=== PATIENT | male | born 1950 | race African-American/Black ===

== ENCOUNTER 2022-08-27 04:30 | Inpatient (IN) | payer OTHER ==
[~2022-08-27] VITALS: Ht 175.3 cm; Wt 68.0 kg
--- NOTE | 2022-08-27 04:35 | NUR ---
[facility] TO ER BED 11.
[2022-08-27 04:36] VITALS: BP 224/115
--- NOTE | 2022-08-27 04:42 | NUR ---
Idalmis martinez in ED - 08/27/22 at [address] PISANO AT BEDSIDE EVALUATING PT.
--- NOTE | 2022-08-27 04:49 | NUR ---
X-RAY AT BEDSIDE.
[2022-08-27] MEDS ORDERED: FUROSEMIDE 40 MG/4 ML VIAL IVP ONE (04:55)
--- NOTE | 2022-08-27 05:32 | NUR ---
TONYA AND PHYLLIS COLLECTED, GIVEN TO EUNICE FROM LAB.
[2022-08-27 05:49] LABS: BASOPHILS # (AUTO) 0.1 K/uL (0.00-0.22); BASOPHILS % (AUTO) 1.5 % (0.0-2.0); EOSINOPHILS # (AUTO) 0.1 K/uL (0-0.4); EOSINOPHILS % (AUTO) 1.7 % (0.0-4.0); HEMATOCRIT 33.7 % (36-52); HEMOGLOBIN 10.5 g/dL (12.0-18.0); LYMPHOCYTES # (AUTO) 1.6 K/uL (2.0-11.5); LYMPHOCYTES % (AUTO) 20.9 % (20.5-51.1); MEAN CORPUSCULAR HEMOGLOBIN 26 pg (27-31); MEAN CORPUSCULAR HGB CONC 31 g/dL (33-37); MEAN CORPUSCULAR VOLUME 81.8 fL (80-94); MONOCYTES # (AUTO) 0.5 K/uL (0.8-1.0); MONOCYTES % (AUTO) 6.6 % (1.7-9.3); NEUTROPHILS # (AUTO) 5.3 K/uL (1.8-7.7); NEUTROPHILS % (AUTO) 69.3 % (42.2-75.2); PLATELET COUNT (AUTO) 352 K/uL (140-450); RED BLOOD CELL COUNT(AUTO) 4.12 MIL/uL (4.20-6.10); RED CELL DISTRIBUTION WIDTH 16.6 % (11.6-13.7); WHITE BLOOD COUNT (AUTO) 7.6 K/uL (4.8-10.8)
[2022-08-27] MEDS ORDERED: cefTRIAXone 1,000 MG VIAL ONE (05:50)
--- NOTE | 2022-08-27 05:59 | NUR ---
Patient lying in bed, A/Ox4, chest rise and fall symmetrical, no s/s of distress
[2022-08-27 06:04] LABS: ALBUMIN 3.5 g/dL (3.4-5.0); ANION GAP 11.7 (8-16); ASPARTATE AMINOTRANSFERASE 69 U/L (15-37); CARBON DIOXIDE 30.4 mmol/L (21-32); CHLORIDE 102 mmol/L (98-107); CREATININE 1.2 mg/dL (0.6-1.3); GLUCOSE 102 mg/dL (74-106); POTASSIUM 4.1 mmol/L (3.5-5.1); SODIUM SERUM 140 mmol/L (136-145); TOTAL BILIRUBIN 0.7 mg/dL (0.0-1.0); UREA NITROGEN, BLOOD 21 mg/dL (7-18)
[2022-08-27 06:25] LABS: APPEARANCE,URINE CLEAR (CLEAR); BILIRUBIN,URINE NEGATIVE (NEGATIVE); BLOOD, URINE 3+ (NEGATIVE); COLOR,URINE AMBER (YELLOW); LEUKOCYTE ESTERASE ,URINE TRACE (NEGATIVE); NITRITE, URINE NEGATIVE (NEGATIVE); UGLUCOSE NEGATIVE (NEGATIVE)
[2022-08-27] MEDS ORDERED: ALBUTEROL 0.083% 2.5 MG/3 ML NEBU INH PRN (06:35)
[2022-08-27 06:38] LABS: RBC,URINE 11-20 (MOD) /HPF (0-5); WBC,URINE 0-5 /HPF (0-5)
[2022-08-27 06:39] LABS: OTHER CASTS, URINE None Seen /LPF (None Seen)
[2022-08-27] MEDS ORDERED: hydrALAZINE 20 MG/ML VIAL IVP PRN (06:40)
[2022-08-27] MEDS ORDERED: ACETAMINOPHEN 325 MG TAB PO PRN (06:40)
[2022-08-27] MEDS ORDERED: ONDANSETRON 4 MG/2 ML VIAL IVP PRN (06:40)
[2022-08-27] MEDS ORDERED: LORazepam 2 MG/ML VIAL IVP PRN (06:40)
[2022-08-27] MEDS ORDERED: ZOLPIDEM 10 MG TAB PO PRN (06:40)
[2022-08-27] MEDS ORDERED: DOCUSATE SODIUM 100 MG GELCAP PO PRN (06:40)
[2022-08-27] MEDS ORDERED: POTASSIUM CHLORIDE 10 MEQ TABER PO PRN (06:40)
[2022-08-27] MEDS ORDERED: MORPHINE SULFATE 2 MG/ML SYR IVP PRN (06:40)
[2022-08-27] MEDS ORDERED: MAG SULF 2000 MG/WATER PREMIX 50 ML IV PRN (06:40)
--- NOTE | 2022-08-27 06:43 | NUR ---
Note michelle in EDM - 08/27/22 at [id number] Kennedy informed, via telephone, of patient's vital signs. Cardiac medication order requested from Dr. Kennedy due to high BP. Dr. Kennedy stated she "will put it in."
--- NOTE | 2022-08-27 06:45 | NUR ---
Patient lying in bed, A/Ox4, chest rise and fall symmetrical, no s/s of distress, on bipap.
--- NOTE | 2022-08-27 06:45 | NUR ---
Dr. Kennedy informed, via telephone, of patient's vital signs. Medication order requested from Dr. Kennedy due to high BP. Dr. Kennedy stated she "will put it in."
--- NOTE | 2022-08-27 07:34 | NUR ---
Received report from RASHMI Kwok. Assumed care at this time.
--- NOTE | 2022-08-27 07:40 | NUR ---
Change of shift report given to AM shift nurse Sedrick CARABALLO. AM shift nurse Sedrick RN verbalized understanding of report, no further questions.
[2022-08-27] MEDS ORDERED: METOPROLOL SUCCINATE 50 MG TABER PO SCH (09:00)
--- NOTE | 2022-08-27 09:08 | NUR ---
PATIENT HAS BEEN SCREENED AND CATEGORIZED MODERATE NUTRITION RISK. PATIENT WILL BE SEEN WITHIN 3-5 DAYS OF ADMISSION. REVIEWED BY KARIS THAO RD
[2022-08-27] MEDS ORDERED: CRUSHER, PILL MC ONE (09:36)
[2022-08-27] MEDS: FUROSEMIDE 40 MG/4 ML VIAL IVP SCH (09:41)
[2022-08-27] MEDS: ECOTRIN 81 MG TABEC PO SCH (09:41)
[2022-08-27] MEDS: hydrALAZINE 10 MG TAB PO SCH ×2 (09:41→13:46)
--- NOTE | 2022-08-27 12:54 | NUR ---
Patient will be admitted to care of Dr. Hernández. Admited to TELE. Will go to room 126A. Belongings list completed. Report to RASHMI Mendoza.
[2022-08-27 13:00] VITALS: BP 168/86
--- NOTE | 2022-08-27 13:00 | NUR ---
RECEIVED REPORT FROM ER NURSE AROLDO FOR CONTINUITY OF CARE. PT STABLE ON TRANSPORT. HE IS A&OX4, HAS DRY SKIN IN BLE THAT HAS HEALED WOUNDS THAT ARE COVERED, ON 8L NC ON TRANSPORT BUT PLACED ON BIPAP WHEN ARRIVED ON UNIT, AND A VAUGHN IN PLACE. PT HAS AN IV IN HIS R HAND 20G AND IN HIS LAC 20G, BOTH ARE INTACT, FLUSH AND SALINE LOCKED. ALL SAFETY MEASURES IN PLACE WITH THE CALL LIGHT IN REACH AND BED IN LOW POSITION. WILL CONTINUE TO MONITOR.
[2022-08-27 16:00] VITALS: BP 140/67
[2022-08-27 19:15] LABS: BARBITURATE, URINE NEGATIVE ng/ml (NEG <=200); BENZODIAZEPINE, URINE NEGATIVE ng/mL (NEG <=200); CANNABINOID, URINE NEGATIVE ng/mL (NEG <=50); COCAINE, URINE NEGATIVE ng/mL (NEG <=300); OPIATE, URINE NEGATIVE ng/mL (NEG <=2000); PHENCYCLIDINE SCREEN,URINE NEGATIVE ng/mL (NEG <=25)
--- NOTE | 2022-08-27 19:25 | NUR ---
ENDORSED PT TO BUS STARTER NURSE FOR CONTINUITY OF CARE. PT STABLE.
--- NOTE | 2022-08-27 19:30 | NUR ---
HAND-OFF REPORT RECEIVED FROM JANE FOR CONTINUITY OF CARE. ENDORSED ULTRASOUND THIS EVENING CONFIRMED BILATERAL PLEURAL EFFUSION. BIPAP ON. PT ON 4LITER O2/NC WHEN BIPAP OFF (EATING). PRIOR CXR AND ECHO REVEALED PLEURAL EFFUSION. PT RECEIVED A/0X4 EATING. 02 4L/NC. WILL INFORM MD CONCERNING US RESULTS.
--- NOTE | 2022-08-27 19:52 | NUR ---
DR MARTÍNEZ NOTIFIED VIA TEXT CONCERNING US RESULTS.NEW ORDERS OBTAINED FOR ULTRASOUND GUIDED THORACENTESIS.
[2022-08-27 20:00] VITALS: BP 137/76
[2022-08-27] MEDS: carvediloL 6.25 MG TAB PO SCH (21:51)
--- NOTE | 2022-08-27 22:00 | NUR ---
PT REFUSED TO SIGN CONSENT FOR ULTRASOUND GUIDED THORACENTESIS. "I GOT 3TEST DONE AT OTHER HOSPITALS AND THEY NEVER SAID I NEEDED TO GET FLUID TAKEN FROM ANYWHERE SO I COULD BREATHE BETTER. WHY CAN'T THEY USE DRUGS ONLY?" CONSENT UNSIGNED.
[2022-08-28] VITALS: BP 129/66
[2022-08-28 04:00] VITALS: BP 154/86
--- NOTE | 2022-08-28 04:25 | NUR ---
NOTIFIED TANYA SMITH PT REFUSED TO SIGN CONSENT STATING PREFERENCE TO TREAT WITH DRUGS OPPOSED TO THORACENTESIS.
--- NOTE | 2022-08-28 05:18 | NUR ---
FOUND PATIENT ON 4L NASAL CANNULA. PATIENT WAS SATING 96%. SPOKE WITH PTS NURSE AND SHE SAID THAT PT REFUSED TO WEAR THE BIPAP AND ASKED FOR A BREAK. PT WAS EXHIBITING NO APPARENT RESPIRATORY DISTRESS.
[2022-08-28 05:32] LABS: BASOPHILS # (AUTO) 0.1 K/uL (0.00-0.22); EOSINOPHILS # (AUTO) 0.1 K/uL (0-0.4); EOSINOPHILS % (AUTO) 2.1 % (0.0-4.0); HEMATOCRIT 28.6 % (36-52); LYMPHOCYTES # (AUTO) 1.5 K/uL (2.0-11.5); LYMPHOCYTES % (AUTO) 23.9 % (20.5-51.1); MEAN CORPUSCULAR HEMOGLOBIN 25 pg (27-31); MEAN CORPUSCULAR HGB CONC 31 g/dL (33-37); MEAN CORPUSCULAR VOLUME 80.6 fL (80-94); MONOCYTES # (AUTO) 0.6 K/uL (0.8-1.0); MONOCYTES % (AUTO) 10.1 % (1.7-9.3); NEUTROPHILS % (AUTO) 62.9 % (42.2-75.2); PLATELET COUNT (AUTO) 284 K/uL (140-450); RED BLOOD CELL COUNT(AUTO) 3.55 MIL/uL (4.20-6.10); RED CELL DISTRIBUTION WIDTH 16.4 % (11.6-13.7); WHITE BLOOD COUNT (AUTO) 6.4 K/uL (4.8-10.8)
[2022-08-28 06:20] LABS: ANION GAP 8.8 (8-16); CARBON DIOXIDE 32.3 mmol/L (21-32); CHLORIDE 104 mmol/L (98-107); CREATININE 1.3 mg/dL (0.6-1.3); GLUCOSE 92 mg/dL (74-106); POTASSIUM 4.1 mmol/L (3.5-5.1); SODIUM SERUM 141 mmol/L (136-145); UREA NITROGEN, BLOOD 23 mg/dL (7-18)
--- NOTE | 2022-08-28 07:30 | NUR ---
RECEIVED REPORT FROM FORENSIC TOXICOLOGIST NURSE. PT STABLE, ON 4L NC WITH NO S/S OF ACUTE RESP DISTRESS. CHEST RISING AND FALLING EVEN AND UNLABORED. PT DENIES SOB. FORENSIC TOXICOLOGIST REPORTS PT REFUSING TO WEAR BIPAP MACHINE. ALL SAFETY MEASURES IN PLACE. WILL CONTINUE TO MONITOR UNDER THE CARE OF RASHMI BLANCO.
--- NOTE | 2022-08-28 07:30 | NUR ---
ENDORSED TO A.M. NURSE MCCABE AND FRANCIS RNs PER CONTINUITY OF CARE: PT REFUSAL TO SIGN CONSENT AND REFUSAL TO KEEP BIPAP MACHINE ON. RT AWARE PT ON 4L/NC PRESENTLY AND MAINTAINING SATS.
--- NOTE | 2022-08-28 07:30 | NUR ---
ENDORSED PATIENT FROM PLANTING SUPERVISOR NURSE.PATIENT LYING IN BED.VERBALLY ACTIVE.VITALS ARE STABLE.POC DISCUSSED WITH PLANTING SUPERVISOR NURSE.ALL SAFETY MEASURES IN PLACE.
[2022-08-28 08:00] VITALS: BP 166/88
--- NOTE | 2022-08-28 09:00 | NUR ---
ALL SCHEDULED MEDICATION ADMINISTERED PER MD ORDER BY RASHMI BLANCO. PT TOLERATED ADMINISTRATIONS. ALL QUESTIONS ANSWERED, REPORTS ALL NEEDS ARE MET AT THIS TIME. ON 4L NC, RT SURAJ ASSESSING. NO ACUTE S/S OF DISTRESS. ALL SAFETY MEASURES IN PLACE, CALL LIGHT WITHIN REACH. WILL CONTINUE TO MONITOR.
[2022-08-28] MEDS: carvediloL 6.25 MG TAB PO SCH ×2 (09:05→21:00)
[2022-08-28] MEDS: ECOTRIN 81 MG TABEC PO SCH (09:05)
[2022-08-28] MEDS: FUROSEMIDE 40 MG/4 ML VIAL IVP SCH (09:05)
[2022-08-28] MEDS: lisinopriL 5 MG TAB PO SCH (09:06)
--- NOTE | 2022-08-28 10:00 | NUR ---
DR MTZ MADE AWARE OF PT REFUSING THORACENTISIS, UNABLE TO OBTAIN CONSENT
--- NOTE | 2022-08-28 10:30 | NUR ---
PT REPORTS BEING HUNGRY, FOOD PROVIDED WITH WATER. ALL SAFETY MEASURES IN PLACE, CALL LIGHT WITHIN REACH. WILL CONTINUE TO MONITOR.
--- NOTE | 2022-08-28 11:43 | NUR ---
RADIOLOGIST CALLED STATING PT NEEDS A PT, PTT INR FOR POSSIBLE THORACENTESIS, INCASE PT CHANGES THEIR MIND AND ACCEPTS THE PROCEDURE.
[2022-08-28 12:00] VITALS: BP 152/57
[2022-08-28 16:00] VITALS: BP 138/72
--- NOTE | 2022-08-28 16:31 | NUR ---
PT STABLE IN BED WITH NO S/S OF ACUTE DISTRESS, ALL NEEDS REPORTED BY PT MET. ALL SAFETY MEASURES IN PLACE, CALL LIGHT WITHIN REACH. WILL CONTINUE TO MONITOR.
--- NOTE | 2022-08-28 18:44 | NUR ---
PT BEDDING HAS BEEN SWITCHED. PT ASSISTED TO THE RESTROOM FOR BM. PT REPORTS MILD NOSE BLEED FROM NC, MOISTURIZER AND EDUCATION PROVIDED. PT CLEANED UP. ALL NEEDS HAVE BEEN MET THROUGH OUT THE SHIFT. ALL SAFETY MEASURES IN PLACE, CALL LIGHT WITHIN REACH. WILL CONTINUE TO MONITOR.
--- NOTE | 2022-08-28 19:30 | NUR ---
RECEIVED REPORT FROM DAY SHIFT NURSE. PT STABLE. CONT ON 4L/NC. 02 SAT 96%. ALL SAFETY MEASURES IN PLACE. WILL CONTINUE TO MONITOR.
[2022-08-28 20:00] VITALS: BP 117/65
--- NOTE | 2022-08-28 22:00 | NUR ---
HS CARE AND MEDS SCHEDULED. HS SNACK. NO SOB. NO NOSE BLEEDS. MONITOR AND ASST. NEEDED
[2022-08-29] VITALS: BP 107/53
[2022-08-29 04:00] VITALS: BP 128/70
[2022-08-29 07:26] LABS: BASOPHILS % (AUTO) 0.7 % (0.0-2.0); EOSINOPHILS # (AUTO) 0.2 K/uL (0-0.4); EOSINOPHILS % (AUTO) 2.7 % (0.0-4.0); HEMATOCRIT 26.5 % (36-52); HEMOGLOBIN 8.6 g/dL (12.0-18.0); LYMPHOCYTES # (AUTO) 1.6 K/uL (2.0-11.5); LYMPHOCYTES % (AUTO) 26.4 % (20.5-51.1); MEAN CORPUSCULAR HEMOGLOBIN 26 pg (27-31); MEAN CORPUSCULAR HGB CONC 32 g/dL (33-37); MEAN CORPUSCULAR VOLUME 79.2 fL (80-94); MONOCYTES # (AUTO) 0.7 K/uL (0.8-1.0); NEUTROPHILS # (AUTO) 3.7 K/uL (1.8-7.7); NEUTROPHILS % (AUTO) 59.2 % (42.2-75.2); PLATELET COUNT (AUTO) 268 K/uL (140-450); PROTHROMBIN TIME 11.1 secs (10.8-13.4); RED BLOOD CELL COUNT(AUTO) 3.35 MIL/uL (4.20-6.10); RED CELL DISTRIBUTION WIDTH 16.5 % (11.6-13.7); WHITE BLOOD COUNT (AUTO) 6.2 K/uL (4.8-10.8)
[2022-08-29 07:29] LABS: ANION GAP 9.2 (8-16); CARBON DIOXIDE 28.9 mmol/L (21-32); CHLORIDE 103 mmol/L (98-107); CREATININE 1.4 mg/dL (0.6-1.3); GLUCOSE 97 mg/dL (74-106); POTASSIUM 4.1 mmol/L (3.5-5.1); SODIUM SERUM 137 mmol/L (136-145); UREA NITROGEN, BLOOD 27 mg/dL (7-18)
--- NOTE | 2022-08-29 07:30 | NUR ---
AWAKE WATCHING TV. DENIES NEEDS. NO RESP DISTRESS. NO BLEEDING FROM NOSTRILS OR OTHERWISE. 4L/NC. REPORT TO ON-COMING RN FOR CONTINUITY OF CARE.
--- NOTE | 2022-08-29 07:30 | NUR ---
ENDORSED PATIENT FROM TRACK PRODUCTION ENGINEER NURSE.PATIENT IS STABLE,VERBALLY ACTIVE.POC DISCUSSED.WILL CONTINUE TO MONITOR
[2022-08-29 08:00] VITALS: BP 147/78
[2022-08-29] MEDS: ECOTRIN 81 MG TABEC PO SCH (09:12)
[2022-08-29] MEDS: FUROSEMIDE 40 MG/4 ML VIAL IVP SCH (09:12)
[2022-08-29] MEDS: carvediloL 6.25 MG TAB PO SCH (09:13)
[2022-08-29] MEDS: lisinopriL 5 MG TAB PO SCH (09:14)
--- NOTE | 2022-08-29 09:21 | NUR ---
[facility] MEDICATION ADMINISTERED PER MD ORDER BY RASHMI BLANCO, PRECEPTOR AT BEDSIDE, PT TOLERATED ADMINISTRATION. IV PATENT AND INTACT. FULL ASSESSMENT COMPLETE. NICHOLASLOL FELL ON THE FLOOR UPON OPENING IT, PHARMACIST IN MED ROOM, NEW ONE OVERRIDE. PT REPORTS ALL NEEDS MET AT THIS TIME. NO S/S OF DISTRESS AT THIS TIME. ALL SAFETY MEASURES IN PLACE, CALL LIGHT WITHIN REACH. WILL CONTINUE TO MONITOR.
--- NOTE | 2022-08-29 10:23 | NUR ---
RECEIVED ON HUMIDIFIED SUPPLEMENTAL OXYGEN AT 4 LPM VIA NC POST HHN PRN THERAPY TITRATED FIO2 TO 2 LPM ESTELLE/RASHMI NOTIFIED
[2022-08-29 12:00] VITALS: BP 124/65
--- NOTE | 2022-08-29 15:30 | NUR ---
PT STABLE IN BED REPORTING ALL NEEDS ARE MET. ALL SAFETY MEASURES IN PLACE, CALL LIGHT WITHIN REACH. WILL CONTINUE TO MONITOR
[2022-08-29 16:00] VITALS: BP 134/79
--- NOTE | 2022-08-29 18:40 | NUR ---
ALL NEEDS HAVE BEEN MET THROUGH OUT THE SHIFT, ALL SAFETY MEASURES IN PLACE. WILL CONTINUE TO MONITOR. PT WILL BE ENDORSED TO MACHINE STRIPPER CUTTER NURSE AT 1900.
--- NOTE | 2022-08-29 19:30 | NUR ---
HAND-OFF REPORT RECEIVED FROM OFF-GOING A.M NURSE. REPORTED: NO S/S OF SOB. AND O2 DECREASED FROM 4L TO 2L/NC WITH PT TOLERATING WELL. CONTINUE TO MONITOR AND ASSIST, MEDS SCHEDULED AND COMFORT MEASURES.
[2022-08-29 20:00] VITALS: BP 137/64
[2022-08-29] MEDS: carvediloL 12.5 MG TAB PO SCH (21:14)
--- NOTE | 2022-08-29 22:30 | NUR ---
PT DENIES PAIN OR NEEDS. OFFERED HS SNACK.REQUESTED "MICHAEL THE TIGER" FLAKES. NONE AVAILABLE. NO BLEEDING FROM NOSE. SOB DENIED.
[2022-08-30] VITALS: BP 127/58
--- NOTE | 2022-08-30 05:30 | NUR ---
IV LAC REINFORCED. FLUSHES WELL. ROCEPHIN INFUSED.
[2022-08-30 05:53] VITALS: BP 132/86
[2022-08-30 05:58] LABS: BASOPHILS % (AUTO) 0.7 % (0.0-2.0); EOSINOPHILS # (AUTO) 0.2 K/uL (0-0.4); EOSINOPHILS % (AUTO) 2.8 % (0.0-4.0); HEMATOCRIT 29.1 % (36-52); HEMOGLOBIN 9.2 g/dL (12.0-18.0); LYMPHOCYTES # (AUTO) 1.7 K/uL (2.0-11.5); LYMPHOCYTES % (AUTO) 26.9 % (20.5-51.1); MEAN CORPUSCULAR HEMOGLOBIN 25 pg (27-31); MEAN CORPUSCULAR HGB CONC 32 g/dL (33-37); MEAN CORPUSCULAR VOLUME 79.7 fL (80-94); MONOCYTES # (AUTO) 0.8 K/uL (0.8-1.0); MONOCYTES % (AUTO) 13.3 % (1.7-9.3); NEUTROPHILS # (AUTO) 3.5 K/uL (1.8-7.7); NEUTROPHILS % (AUTO) 56.3 % (42.2-75.2); PLATELET COUNT (AUTO) 276 K/uL (140-450); RED BLOOD CELL COUNT(AUTO) 3.65 MIL/uL (4.20-6.10); RED CELL DISTRIBUTION WIDTH 16.5 % (11.6-13.7); WHITE BLOOD COUNT (AUTO) 6.3 K/uL (4.8-10.8)
[2022-08-30 06:27] LABS: ANION GAP 7.3 (8-16); CARBON DIOXIDE 30.3 mmol/L (21-32); CHLORIDE 102 mmol/L (98-107); CREATININE 1.3 mg/dL (0.6-1.3); GLUCOSE 103 mg/dL (74-106); POTASSIUM 4.6 mmol/L (3.5-5.1); SODIUM SERUM 135 mmol/L (136-145); UREA NITROGEN, BLOOD 26 mg/dL (7-18)
--- NOTE | 2022-08-30 07:30 | NUR ---
HAND-OFF REPORT TO ON-COMING NURSE. PT STABLE. NO SOB.
--- NOTE | 2022-08-30 07:33 | NUR ---
GOT REPORT FROM THE NIGHT NURSE, PT IS SLEEPING NO [id number]
[2022-08-30 08:00] VITALS: BP 147/84
[2022-08-30] MEDS: lisinopriL 5 MG TAB PO SCH (08:58)
[2022-08-30] MEDS: carvediloL 12.5 MG TAB PO SCH (08:58)
[2022-08-30] MEDS: ECOTRIN 81 MG TABEC PO SCH (08:58)
[2022-08-30] MEDS ORDERED: FUROSEMIDE 40 MG TAB PO SCH (09:00)
[2022-08-30] MEDS ORDERED: ASPI-1856 PO (10:26)
[2022-08-30] MEDS ORDERED: FURO40TA9 PO (10:26)
[2022-08-30] MEDS ORDERED: CARV12.52 PO (10:26)
[2022-08-30] MEDS ORDERED: LISI5TAB24 PO (10:26)
[2022-08-30 11:41] VITALS: BP 147/83
[2022-08-30 12:00] VITALS: BP 119/48
[2022-08-30 16:22] VITALS: BP 119/48
--- NOTE | 2022-08-30 17:36 | NUR ---
DISCHARGED PT ,DISCHARGE INSTRUCTION GIVEN AND ID AND IV LINE REMOVED, PT ESCORTED OUT SIDE ON W\C WITH OUT DISCOMFORT , PT REFUSED TO HARIS THE DISCHARGE PAPER.[id number]
== END 2022-08-30 17:30 | disposition home or self-care (01) | DRG 193 ==
LOC: MED 04:30 → MTU 05:48 → MMU 11:57
PROVIDERS: ADMIT Family Medicine; ATTEND Family Medicine
PROC: 5A09357 Assistance with Respiratory Ventilation, Less than 24 Consecutive Hours, Continuous Positive Airway Pressure (ICD-10-PCS; principal; 2022-08-27)
DX: J18.9 Pneumonia, unspecified organism (principal); I50.23 Acute on chronic systolic (congestive) heart failure; J96.01 Acute respiratory failure with hypoxia; I16.1 Hypertensive emergency; N39.0 Urinary tract infection, site not specified; I11.0 Hypertensive heart disease with heart failure; E83.51 Hypocalcemia; Z20.822 Contact with and (suspected) exposure to COVID-19; D64.9 Anemia, unspecified; Z91.14 Patient's other noncompliance with medication regimen
CPT/HCPCS: 36415; 71045; 76604; 80048; 80053; 80305; 81001; 83735; 83880; 84484; 85025; 85610; 85730; 87040; 87081; 94640; 94660; 96365; 96375; 97116; 97163-GP; 99285; J0696; J1940; J7060; J7613; Q0092

== ENCOUNTER 2022-09-28 18:19 | Emergency (ER) | payer OTHER ==
[~2022-09-28] VITALS: Ht 175.3 cm; Wt 76.2 kg
[~2022-09-28 18:19] MED LIST: ASPI-1856 PO; CARV12.52 PO; FURO40TA9 PO; LISI5TAB24 PO
--- NOTE | 2022-09-28 18:53 | NUR ---
CALLED X 1. NO SHOW.
[2022-09-28 20:00] VITALS: BP 192/102
--- NOTE | 2022-09-28 23:41 | NUR ---
VAUGHN CATH INSERTED PT TOLERATED WELL
[2022-09-29 01:03] LABS: APPEARANCE,URINE CLEAR (CLEAR); BILIRUBIN,URINE NEGATIVE (NEGATIVE); BLOOD, URINE 3+ (NEGATIVE); COLOR,URINE YELLOW (YELLOW); LEUKOCYTE ESTERASE ,URINE 2+ (NEGATIVE); NITRITE, URINE NEGATIVE (NEGATIVE); UGLUCOSE NEGATIVE (NEGATIVE)
[2022-09-29 01:26] LABS: RBC,URINE TOO NUMEROUS TO COUN /HPF (0-5); WBC,URINE >25 (MANY) /HPF (0-5)
[2022-09-29] MEDS ORDERED: CEPH500C16 PO (01:52)
[2022-09-29] MEDS ORDERED: LIDOCAINE MPF 1% 5 ML ONE (02:01)
[2022-09-29] MEDS ORDERED: cefTRIAXone 1,000 MG VIAL ONE (02:01)
[2022-09-29] MEDS: cefTRIAXone 1,000 MG in LIDOCAINE MPF 1% 2.1 ML IM ONE (02:43)
[2022-09-29 02:44] VITALS: BP 164/97
--- NOTE | 2022-09-29 02:44 | NUR ---
Patient discharged with v/s stable. Written and verbal after care instructions given and explained. Patient verbalized understanding. Ambulatory with steady gait. All questions addressed prior to discharge. Advised to follow up with PMD.
== END 2022-09-29 02:44 | disposition home or self-care (01) ==
LOC: MED 18:19
DX: T83.098A Other mechanical complication of other urinary catheter, initial encounter (principal); N39.0 Urinary tract infection, site not specified; I10 Essential (primary) hypertension; Z98.890 Other specified postprocedural states; Z79.2 Long term (current) use of antibiotics; Z79.899 Other long term (current) drug therapy; Z79.82 Long term (current) use of aspirin; Y84.6 Urinary catheterization as the cause of abnormal reaction of the patient, or of later complication, without mention of misadventure at the time of the procedure
CPT/HCPCS: 51702; 81001; 87086; 87186; 96372; 99284; J0696; J2001